=== PATIENT | male | born 1940 | race Caucasian/White ===

== ENCOUNTER → 2016-11-04 | Outpatient (CLI) | payer OTHER, BC | LOC: FIMAGING 11:02 | PROVIDERS: ATTEND Psychiatry & Neurology Neurology | DX: M79.643 Pain in unspecified hand (principal); M79.606 Pain in leg, unspecified; R25.3 Fasciculation ==

== ENCOUNTER 2016-12-07 13:20 | Inpatient (IN) | payer OTHER, BC ==
[2016-12-07] MEDS ORDERED: SKIN ADHESIVE (DERMABOND) 1 EACH TP ONE (14:30)
[2016-12-07] MEDS ORDERED: BUPIVACAINE/EPI 0.5% 30 ML SDV ONE (14:30)
[2016-12-07 15:07] LABS: ANION GAP 10 mEq/L (8-16); CARBON DIOXIDE 24 mEq/l (22-31); CHLORIDE 104 mEq/L (97-110); CREATININE 0.7 mg/dL (0.7-1.3); GLOMERULAR FILTRATION RATE > 60; GLUCOSE 113 mg/dL (70-100); POTASSIUM 3.8 mEq/L (3.5-5.2); SODIUM 138 mEq/L (134-144)
[2016-12-07 15:09] LABS: APTT 25.8 SEC (23.0-38.0); INR 1.19 (0.83-1.16); PROTIME(PATIENT) 15.1 SEC (12.0-15.0)
[2016-12-07] MEDS ORDERED: ONDANSETRON 4 MG/2 ML VIAL IVP ONE (15:40)
[2016-12-07] MEDS ORDERED: HYDROCODONE/APAP 5/325 TAB PO PRN (15:42)
--- NOTE | 2016-12-07 16:18 | GHP ---
[f rep st] HISTORY AND PHYSICAL DATE OF ADMISSION: 12/07/2016 PRESENT ILLNESS: Patient is a 76-year-old male who presented to Urgent Care at [facility] er, and a CT scan was ordered showing acute appendicitis. Review of the CT scan shows a 7 mm append ix with surrounding inflammatory change, consistent with an early appendicitis. PAST MEDICAL HISTORY: Allergies: None. CURRENT MEDICATIONS: Atorvastatin, Lumigan eye drops, gabapentin, metoprolol and Rapaflo. REVIEW OF SYSTEMS: The patient had a TIA 2 years ago with a negative workup. No trouble since. He is on Eliquis which I am holding. He took a dose of Eliquis this morning. He also has a pacemaker placed for tachy arrhythmias. Otherwise denies diabetes, heart attacks or significant medical problems. He is under the care of Roger Spears from Cardiology. PREVIOUS SURGERY: Sinus surgery, pacemaker placement. PHYSICAL EXAMINATION: GENERAL: Pleasant, tall, slender male in no acute distress. HEENT: No scle ral icterus. Pharynx clear. NECK: Supple without adenopathy. LUNGS: Clear. HEART: Normal S1, S2 without murmur. ABDOMEN: Soft, tender in the right lower quadrant with mild rebound. No masses felt. EXTREMITIES: Grossly unremarkable. NEUROLOGIC: Grossly unremarkable. LABORATORY DATA: A white blood count done at the [facility] is 12.7. ASSESSMENT: Early acute appendicitis documented by CT scan but on Eliquis. I had a discussion with the patient about the dangers of performing surgery, even limited appendecto my on Eliquis versus the 60% to 70% chance that early appendicitis can be treated with IV broad-spec trum antibiotics successfully. We will admit him to the hospital, place him on IV ertapenem and hop e that his symptoms resolve. If 72 hours passes and there is still an issue, it would be safe to op erate at that time. Patient is very comfortable with this approach. /[id number]/MODL
[2016-12-07] MEDS: ERTAPENEM 1 GM in NS 100 ML IV SCH (16:51)
[2016-12-07] MEDS: LR 1,000 ML IV SCH (16:52)
[2016-12-07] MEDS: ACETAMINOPHEN 325 MG TAB PO PRN (19:42)
[2016-12-07] MEDS: GABAPENTIN 100 MG CAP PO SCH (19:43)
[2016-12-07] MEDS: BIMATOPROST 0.01% 2.5 ML OPHT.BTL EACHEYE SCH (19:43)
[2016-12-08] MEDS ORDERED: ACETAMINOPHEN 500 MG TAB PO PRN (06:46)
--- NOTE | 2016-12-08 06:48 | SOAPPROG ---
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 will try to give ab's a few days to at least get pst elequis effect. Objective: Vital Signs Temp Pulse Resp BP Pulse Ox 37.1 C 70 18 92/65 L 98 12/08/16 03:31 12/08/16 03:31 12/08/16 03:31 12/08/16 03:31 12/08/16 03:31 Laboratory Results 12/07/16 14:40 PT 15.1 SEC (12.0-15.0) H 12/07/16 14:40 INR 1.19 (0.83-1.16) H 12/07/16 14:40 ICD10 Worksheet Patient Problems: Problems Problem Status Onset Appendicitis Acute - ICD10 Problem Qualifiers (1) Appendicitis Qualifiers: Appendicitis type: A Acute appendicitis type: A
[2016-12-08] MEDS ORDERED: NON-FORMULARY NEW DRUG (Silodosin [Rapaflo] 8 MG) PO SCH (08:00)
[2016-12-08] MEDS: ATORVASTATIN CALCIUM 20 MG TAB PO SCH (08:31)
[2016-12-08] MEDS: METOPROLOL SUCCINATE XR 25 MG TAB PO SCH (08:31)
[2016-12-08] MEDS: ERTAPENEM 1 GM in NS 100 ML IV SCH (08:31)
[2016-12-08] MEDS: ACETAMINOPHEN 325 MG TAB PO PRN ×2 (08:44→19:00)
[2016-12-08] MEDS ORDERED: CETIRIZINE 10 MG TAB PO PRN (20:15)
[2016-12-08] MEDS: CETIRIZINE 10 MG TAB PO PRN (21:08)
[2016-12-08] MEDS: GABAPENTIN 100 MG CAP PO SCH (21:08)
[2016-12-08] MEDS: BIMATOPROST 0.01% 2.5 ML OPHT.BTL EACHEYE SCH (21:09)
[2016-12-09] MEDS: ACETAMINOPHEN 325 MG TAB PO PRN ×3 (08:53→21:17)
[2016-12-09] MEDS: METOPROLOL SUCCINATE XR 25 MG TAB PO SCH (08:54)
[2016-12-09] MEDS: ERTAPENEM 1 GM in NS 100 ML IV SCH (08:54)
[2016-12-09] MEDS: ATORVASTATIN CALCIUM 20 MG TAB PO SCH (08:54)
--- NOTE | 2016-12-09 10:57 | SOAPPROG ---
SORAYSA Progress Note Assessment/Plan: Assessment: Plan: Subjective: vss, low grad temp. teder rlq with amass developing- apparent failure of medical management. will plan appendectomy tomorrow when off elliquis 72 hours. Objective: Vital Signs Temp Pulse Resp BP Pulse Ox 37.8 C 73 18 110/56 L 92 12/09/16 07:38 12/09/16 07:38 12/09/16 07:38 12/09/16 07:38 12/09/16 07:38 Laboratory Results 12/07/16 14:40 PT 15.1 SEC (12.0-15.0) H 12/07/16 14:40 INR 1.19 (0.83-1.16) H 12/07/16 14:40 ICD10 Worksheet Patient Problems: Problems Problem Status Onset Appendicitis Acute - ICD10 Problem Qualifiers (1) Appendicitis Qualifiers: Appendicitis type: A Acute appendicitis type: A
[2016-12-09] MEDS: LR 1,000 ML IV SCH ×2 (16:09→23:48)
[2016-12-09] MEDS: GABAPENTIN 100 MG CAP PO SCH (21:17)
[2016-12-09] MEDS: BIMATOPROST 0.01% 2.5 ML OPHT.BTL EACHEYE SCH (21:17)
[2016-12-10] MEDS: ACETAMINOPHEN 325 MG TAB PO PRN (05:10)
[2016-12-10] MEDS ORDERED: SKIN ADHESIVE (DERMABOND) 1 EACH TP ONE (07:22)
[2016-12-10] MEDS ORDERED: BUPIVACAINE/EPI 0.5% 30 ML SDV ONE (07:22)
[2016-12-10] MEDS: ERTAPENEM 1 GM in NS 100 ML IV SCH (08:15)
[2016-12-10] MEDS: LR 1,000 ML IV SCH (08:15)
[2016-12-10] MEDS: CETIRIZINE 10 MG TAB PO PRN (09:06)
[2016-12-10] MEDS: METOPROLOL SUCCINATE XR 25 MG TAB PO SCH (09:12)
[2016-12-10] MEDS: ATORVASTATIN CALCIUM 20 MG TAB PO SCH (09:12)
[2016-12-10] MEDS ORDERED: ROCURONIUM 50 MG/5 ML VIAL ONE (09:53)
[2016-12-10] MEDS ORDERED: KETOROLAC 30 MG/1 ML SDV ONE (09:53)
[2016-12-10] MEDS ORDERED: DEXAMETHASONE 4 MG/ML VIAL ONE (09:53)
[2016-12-10] MEDS ORDERED: fentaNYL 100 MCG/2 ML INJ ONE (09:54)
[2016-12-10] MEDS ORDERED: PROPOFOL 200 MG/20 ML VIAL ONE (09:54)
[2016-12-10] MEDS ORDERED: LIDOCAINE 2% 5 ML SDV ONE (09:54)
[2016-12-10] MEDS ORDERED: MIDAZOLAM 2 MG/2 ML VIAL ONE (09:56)
--- NOTE | 2016-12-10 11:25 | POSTOPPROG ---
Post Op Note Date of Operation: 12/10/16 Surgeon: Carlos Tabares Operator Assistant I Cementing: coltrain Anesthesia: GET(General Endotracheal) Pre-op Diagnosis: acute appy Post-op Diagnosis: same Indication: same Procedure: lap appy Findings: appendicitis Inf/Abcess present in the surg proc area at time of surgery?: No EBL: Minimal Complications: ne Specimen(s): appy
--- NOTE | 2016-12-10 11:37 | GOP ---
[f rep st] OPERATIVE REPORT DATE OF OPERATION: SURGEON: Carlos Tabares MD IT APPLICATION SUPPORT ANALYST: Rakan Rothman, MAURICEA, LSA. PREOPERATIVE DIAGNOSIS: Acute appendicitis. POSTOPERATIVE DIAGNOSIS: Acute appendicitis. PROCEDURE PERFORMED: Laparoscopic appendectomy. FINDINGS: INDICATIONS: Patient presented 3 days ago with acute appendicitis. We elected to treat this with I V antibiotics because of his use of Eliquis and the risk of bleeding. Despite several days of Eliqu is, he continued with right lower quadrant pain and developed a mass in the right lower quadrant, an d now that we are 72 hours off Eliquis, it was felt appropriate to perform an appendectomy. DESCRIPTION OF PROCEDURE: General anesthetic, the abdomen was scrubbed with ChloraPrep, draped in t he usual sterile fashion. Palpation of the right lower quadrant did show billiard ball-sized mass, but a Veress needle was still used to create a pneumoperitoneum through an infraumbilical incision a nd a 12 mm scope placed. Identification of the appendix in the right lower quadrant was obvious. A 5 mm port placed suprapubically teased away omentum, and eventually the appendix was identified. A 5 mm port in the right upper quadrant allowed a Harmonic scalpel to be introduced. This completed the dissection, and then the mesoappendix was amputated with the Harmonic scalpel. The base of the appendix was amputated flush on the cecum with an Endo-AMY 45 blue cartridge. The appendix was exud ative, suppurative, but not ruptured. It was placed in an Endopouch and extracted. There was no si gnificant free fluid in the abdomen. The fascial defect at the umbilicus closed with 0 Vicryl, skin incisions with 4-0 Monocryl and Dermabond. Patient tolerated the procedure well. /[id number]/MODL
[2016-12-10 15:39] VITALS: RESP 18
--- NOTE | 2016-12-10 16:58 | GDS ---
[f rep st] DISCHARGE SUMMARY HISTORY OF PRESENT ILLNESS: Patient was admitted with acute appendicitis. Because he was on Eliqui s, it was elected to treat with antibiotics for 72 hours prior to proceeding with an appendectomy. He underwent laparoscopic appendectomy today showing a nonruptured appendix. FINAL DIAGNOSIS: Acute appendicitis. DISPOSITION: Home. FOLLOWUP: Follow up with Dr. Tabares in a week. /[id number]/MODL
[2016-12-10 17:56] VITALS: BP 105/69; PULSE 61; TEMP 96.6; O2SAT 98
== END 2016-12-10 18:39 | disposition home or self-care (01) | DRG 343 ==
LOC: F3E 13:51 → OBSVTOIN 15:40 → F3E 15:59
PROVIDERS: ADMIT Surgery; ATTEND Surgery
PROC: 0DTJ4ZZ Resection of Appendix, Percutaneous Endoscopic Approach (ICD-10-PCS; principal; 2016-12-10 10:00)
DX: K35.80 Unspecified acute appendicitis (principal); Z95.0 Presence of cardiac pacemaker; Z79.01 Long term (current) use of anticoagulants; Z86.73 Personal history of transient ischemic attack (TIA), and cerebral infarction without residual deficits
CPT/HCPCS: J1100; J1335; J1885; J2250; J2704; J3010

== ENCOUNTER → 2018-06-11 | Outpatient (CLI) | payer OTHER, BC | LOC: FCPNEURO 21:00 | PROVIDERS: ATTEND Psychiatry & Neurology Sleep Medicine | DX: G47.31 Primary central sleep apnea (principal) ==

== ENCOUNTER → 2018-07-26 | Outpatient (CLI) | payer OTHER, BC | LOC: BMCIMAGING 09:59 | PROVIDERS: ATTEND Orthopaedic Surgery Hand Surgery | DX: M25.522 Pain in left elbow (principal) ==